=== PATIENT | male | born 1970 | race Native Hawaiian/Other Pacific Islander ===

== ENCOUNTER 2017-11-05 17:13 | Emergency (ER) | payer OTHER ==
[~2017-11-05] VITALS: Ht 193 cm; Wt 127.3 kg
[~2017-11-05 17:13] MED LIST: CETIRIZINE; IMITREX NA20 MG/SPRA NS; MICARDIS20 MG; MIDRIN; PERCOCET 325 MG1 TA2 PO; TOPIRAMATE; ULTRAM 50MG TAB50 MG PO; ZOFRAN 4MG T4 MG/TAB PO
[2017-11-05 17:15] VITALS: BP 134/93; TEMP 99
[2017-11-05 17:40] LABS: COLLECTION METHOD CLEAN CATCH
[2017-11-05 17:48] LABS: BASO # 0.1 (0.0-0.2); EOS # 0.2 (0.0-0.7); EOS % 3.3 % (0-4.0); GRAN # 3.2 (1.4-6.5); GRAN % 46.3 % (42.2-75.2); HEMATOCRIT 41.8 % (42.0-52.0); HEMOGLOBIN 14.8 g/dl (13.5-18.0); LYMPH # 2.7 (1.2-3.4); MEAN CELL VOLUME 92 fl (80.0-100.0); MEAN CORPUSCULAR HEMOGLOBIN 32 pg (27.0-31.0); MEAN CORPUSCULAR HGB CONC 35 g/dl (33.0-37.0); MONO # 0.8 (0.1-0.6); MONO % 11.1 % (1.7-9.3); PLATELET COUNT 176 K/mm3 (130-400); RED BLOOD COUNT 4.57 M/mm3 (4.20-5.60); REDCELL DISTRIBUTION WIDTH-CV 11.9 % (11.5-14.5)
[2017-11-05 17:52] LABS: MUCOUS Present /lpf; PH 6 (5-8); SQUAMOUS EPITHELIAL None Seen /hpf; URINE APPEARANCE Clear; URINE BACTERIA None Seen /hpf; URINE BILIRUBIN Negative (NEGATIVE); URINE BLOOD 2+ (NEGATIVE); URINE COLOR Yellow; URINE GLUCOSE Negative (NEGATIVE); URINE KETONE Negative (NEGATIVE); URINE LEUKOCYTE ESTERASE Negative (NEGATIVE); URINE NITRATE Negative (NEGATIVE); URINE PROTEIN(semi-quant) Negative (NEGATIVE)
[2017-11-05 17:56] LABS: ALBUMIN 4.1 gm/dL (3.5-5.0); BILIRUBIN,TOTAL 0.3 mg/dL (0.0-1.0); C-REACTIVE PROTEIN 1.6 mg/dL (0.0-0.9); CALCIUM 9.2 mg/dL (8.4-10.2); CREATININE, serum 0.83 mg/dL (0.66-1.25); POTASSIUM 3.5 mmol/L (3.4-5.0); TOTAL PROTEIN 7.8 gm/dL (6.4-8.2)
[2017-11-05] MEDS ORDERED: NORCO 325 MG-51 TAB PO (19:27)
[2017-11-05 20:08] VITALS: PULSE 71
== END 2017-11-05 20:08 | disposition home or self-care (01) ==
LOC: COL.ER 17:13
PROVIDERS: Family Medicine
DX: N20.1 Calculus of ureter (principal); N20.0 Calculus of kidney; Z98.890 Other specified postprocedural states
CPT/HCPCS: J1170; J2405; J7030; Q9967